=== PATIENT | female | born 1950 | race African-American/Black ===

== ENCOUNTER 2021-10-29 20:30 | Emergency (ER) | payer OTHER ==
[~2021-10-29] VITALS: Ht 177.8 cm; Wt 99.8 kg
[2021-10-29] MEDS ORDERED: VITAMIN D350 MCG PO (21:18)
[2021-10-29] MEDS ORDERED: LEVOTHYROXINE25 MCG PO (21:18)
[2021-10-29] MEDS ORDERED: ZOFRAN8 MG (21:19)
[2021-10-29] MEDS ORDERED: NORVASC10 MG PO (21:20)
== END 2021-10-30 | disposition home or self-care (01) ==
LOC: ER 20:30
DX: S93.401A Sprain of unspecified ligament of right ankle, initial encounter (principal); W18.30XA Fall on same level, unspecified, initial encounter; Y93.9 Activity, unspecified; Y92.9 Unspecified place or not applicable; Y99.9 Unspecified external cause status; I10 Essential (primary) hypertension